=== PATIENT | female | born 1985 | race Caucasian/White ===

== ENCOUNTER 2016-08-05 12:39 | Emergency (ER) | payer MEDICAID ==
[~2016-08-05] VITALS: Ht 160 cm; Wt 51.4 kg
[2016-08-05] MEDS ORDERED: MORPHINE SULFATE 4 MG/ML, 1ML ONE (13:48)
[2016-08-05] MEDS ORDERED: ONDANSETRON 2MG/ML, 2ML ONE (13:48)
[2016-08-05] MEDS ORDERED: SODIUM CHLORIDE FLUSH 10ML SYR IVF ONE (14:00)
[2016-08-05] MEDS ORDERED: PLEASE ENTER ALLERGIES MC SCH ×2 (14:00)
[2016-08-05] MEDS ORDERED: HYDROmorphone 1 MG/ML, 1ML IVPush PRN (14:00)
[2016-08-05] MEDS ORDERED: SODIUM CHLORIDE 0.9% 1,000ML IVBOLUS ONE (14:00)
[2016-08-05] MEDS ORDERED: MORPHINE SULFATE 4 MG/ML, 1ML IVPush ONE (14:00)
[2016-08-05] MEDS ORDERED: ONDANSETRON 2MG/ML, 2ML IVPush ONE (14:00)
[2016-08-05] MEDS ORDERED: HYDROmorphone 1 MG/ML, 1ML ONE ×2 (14:15→17:11)
[2016-08-05 14:20] LABS: ASPARTATE AMINO TRANSFERASE 14 U/L (15-37); BLOOD UREA NITROGEN 10 mg/dL (7-18)
[2016-08-05] MEDS ORDERED: HYDROmorphone 2 MG/ML, 1ML IVPush ONE ×2 (14:30→17:30)
[2016-08-05] MEDS ORDERED: MAALOX/HYOSCYAMINE/LIDOCAINE 45 ML BOTTLE ONE (14:35)
[2016-08-05] MEDS ORDERED: DIAZEPAM 5 MG/ML, 2ML ONE (14:54)
[2016-08-05] MEDS ORDERED: MAALOX/HYOSCYAMINE/LIDOCAINE 45 ML BOTTLE PO ONE (15:00)
[2016-08-05 15:31] LABS: PATH.CAST-FLAG NOT PRESENT; SPERM-FLAG NOT PRESENT; SRC-FLAG NOT PRESENT; XTAL-FLAG NOT PRESENT; YLC-FLAG NOT PRESENT
[2016-08-05] MEDS ORDERED: METOCLOPRAMIDE 5 MG/ML, 2ML ONE (15:43)
[2016-08-05] MEDS ORDERED: METOCLOPRAMIDE 5 MG/ML, 2ML IVPush ONE ×2 (16:00)
[2016-08-05] MEDS ORDERED: DIAZEPAM 5 MG/ML, 2ML IVPush ONE (16:00)
[2016-08-05] MEDS ORDERED: OMNIPAQUE 350 MG/ML, 100ML BOTTLE ONE (16:03)
[2016-08-05] MEDS ORDERED: ZIPRASIDONE 20 MG INJ IM ONE ×2 (16:49→17:00)
[2016-08-05] MEDS ORDERED: OLAN10TA3 PO (16:56)
[2016-08-05] MEDS ORDERED: ESOM20CA PO (16:56)
[2016-08-05] MEDS ORDERED: THYR90TA PO (16:56)
[2016-08-05] MEDS ORDERED: SODIUM CHLORIDE 0.9%, 500ML IVBOLUS ONE (17:00)
[2016-08-05] MEDS ORDERED: NS + 20MEQ KCL 1,000 ML IV SCH (17:12)
[2016-08-05 17:25] VITALS: BP 116/80
[2016-08-05] MEDS ORDERED: ONDANSETRON ODT 4 MG PO PRN (17:30)
[2016-08-05] MEDS ORDERED: PROMETHAZINE 25 MG/ML, 1ML IM PRN (17:30)
[2016-08-05] MEDS ORDERED: LORazepam 2 MG/ML, 1ML IVPush PRN (17:30)
[2016-08-05] MEDS ORDERED: ONDANSETRON 2MG/ML, 2ML IVPush PRN (17:30)
[2016-08-05] MEDS ORDERED: ENOXAPARIN 40 MG/0.4 ML SQ SCH (17:30)
[2016-08-05] MEDS ORDERED: morphine SULFATE 10 MG/ML, 1ML IVPush PRN (17:30)
[2016-08-05] MEDS ORDERED: ENOXAPARIN 40 MG/0.4 ML ONE (19:02)
[2016-08-05] MEDS ORDERED: NS + 20MEQ KCL 1,000 ML IV ONE (19:02)
[2016-08-05] MEDS ORDERED: OLANZAPINE 10 MG TABLET PO SCH (21:00)
[2016-08-06] MEDS ORDERED: THYROID 90 MG PO SCH (09:00)
[2016-08-06] MEDS ORDERED: TEMPLATE NON-FORMULARY MED. (Esomeprazole Magnesium** (Nexium**) 20 MG) PO SCH (09:00)
== END 2016-08-05 19:55 | disposition left against medical advice (07) ==
LOC: ED 16:38 → UNDOADMIN 16:39 → EDIP 16:39 → ED 17:10 → UNDODISIN 19:55 → ED 19:55
DX: R10.84 Generalized abdominal pain (principal); R11.10 Vomiting, unspecified; E86.0 Dehydration
CPT/HCPCS: 36415; 74177; 80053; 81001; 83690; 84443; 84703; 85025; 93005; 96361; 96372; 96374; 96375; 96376; 99285; J1170; J1650; J2405; J2765; J3360; J3480; J3486; J7030; J7040; Q9967

== ENCOUNTER 2016-08-05 23:48 | Observation (INO) | payer MEDICAID ==
[~2016-08-05] VITALS: Ht 160 cm; Wt 56.1 kg
[~2016-08-05 23:48] MED LIST: ESOM20CA PO; OLAN10TA3 PO; THYR90TA PO
[2016-08-06] MEDS ORDERED: FAMOTIDINE 20 MG/2 ML ONE (00:20)
[2016-08-06] MEDS ORDERED: PROCHLORPERAZINE 5 MG/ML, 2ML ONE (00:20)
[2016-08-06] MEDS ORDERED: ONDANSETRON 2MG/ML, 2ML ONE (00:21)
[2016-08-06] MEDS ORDERED: MORPHINE SULFATE 4 MG/ML, 1ML ONE ×2 (00:21→02:02)
[2016-08-06] MEDS ORDERED: ONDANSETRON 2MG/ML, 2ML IVPush ONE (00:30)
[2016-08-06] MEDS ORDERED: PROCHLORPERAZINE 5 MG/ML, 2ML IVPush ONE (00:30)
[2016-08-06] MEDS ORDERED: SODIUM CHLORIDE FLUSH 10ML SYR IVF ONE (00:30)
[2016-08-06] MEDS ORDERED: SODIUM CHLORIDE 0.9% 1,000ML IVBOLUS ONE (00:30)
[2016-08-06] MEDS ORDERED: FAMOTIDINE 20 MG/2 ML IVP ONE (00:30)
[2016-08-06] MEDS: MORPHINE SULFATE 4 MG/ML, 1ML IVPush PRN ×2 (00:35→02:08)
[2016-08-06] MEDS ORDERED: ZIPRASIDONE 20 MG INJ IM ONE ×2 (01:00→01:35)
[2016-08-06] MEDS ORDERED: NS + 20MEQ KCL 1,000 ML IV SCH (02:29)
[2016-08-06] MEDS ORDERED: BISACODYL 10 MG SUPP PR PRN (02:30)
[2016-08-06] MEDS ORDERED: LABETALOL 5MG/ML, 20ML IVPush PRN (02:30)
[2016-08-06] MEDS ORDERED: ENOXAPARIN 40 MG/0.4 ML SQ SCH (02:30)
[2016-08-06] MEDS ORDERED: POLYETHYLENE GLYCOL 17 GM PACKET PO PRN (02:30)
[2016-08-06] MEDS ORDERED: DOCUSATE 100 MG CAPSULE PO PRN (02:30)
[2016-08-06] MEDS ORDERED: TRAZODONE 50MG TABLET PO PRN (02:30)
[2016-08-06] MEDS ORDERED: ACETAMINOPHEN 325 MG TABLET PO PRN (02:30)
[2016-08-06] MEDS ORDERED: PROCHLORPERAZINE 5 MG/ML, 2ML IVPush PRN (03:00)
[2016-08-06] MEDS ORDERED: HYDROcodone/APAP 5/325 TABLET PO PRN (03:30)
[2016-08-06 04:13] VITALS: BP 126/94
[2016-08-06 06:45] VITALS: BP 123/86
[2016-08-06 07:39] LABS: ASPARTATE AMINO TRANSFERASE 15 U/L (15-37); BLOOD UREA NITROGEN 8 mg/dL (7-18)
[2016-08-06] MEDS ORDERED: THYROID 30 MG TABLET PO SCH (09:00)
[2016-08-06] MEDS ORDERED: PANTOPRAZOLE 20MG TABLET PO SCH (09:00)
[2016-08-06] MEDS ORDERED: OLANZAPINE 10 MG TABLET PO SCH (21:00)
== END 2016-08-06 09:20 | disposition left against medical advice (07) ==
LOC: ED 23:59 → EDIP 08-06 01:57 → INTOOBSV 08-06 01:57 → 4WST 08-06 03:09
PROVIDERS: ADMIT Internal Medicine; ATTEND Internal Medicine
DX: R11.2 Nausea with vomiting, unspecified (principal); F12.90 Cannabis use, unspecified, uncomplicated; E87.6 Hypokalemia; E03.9 Hypothyroidism, unspecified; F31.9 Bipolar disorder, unspecified; K21.9 Gastro-esophageal reflux disease without esophagitis
CPT/HCPCS: 36415; 80053; 83735; 84439; 84443; 85025; 96361; 96372; 96374; 96375; 96376; 99285; G0378; J0780; J2405; J3480; J3486; J7030; S0028